=== PATIENT | male | born 2000 | race Caucasian/White ===

== ENCOUNTER 2020-09-14 15:42 | Emergency (ER) | payer SELFPAY ==
[~2020-09-14] VITALS: Ht 180.3 cm; Wt 70.0 kg
[2020-09-14 17:35] VITALS: BP 101/67
== END 2020-09-14 18:05 | disposition left against medical advice (07) ==
LOC: ER 15:42
DX: Z20.2 Contact with and (suspected) exposure to infections with a predominantly sexual mode of transmission (principal); Z53.21 Procedure and treatment not carried out due to patient leaving prior to being seen by health care provider